=== PATIENT | male | born 1950 | race Caucasian/White ===

== ENCOUNTER → 2017-11-25 06:40 | Outpatient (CLI) | payer OTHER ==
[~2017-11-25 06:40] MED LIST: COZAAR100 MG PO; LIPITOR20 MG PO; NORVASC2.5 M1 PO; OMEPRAZOLE40 MG PO; TAMS0.4C PO
== END | disposition home or self-care (01) ==
LOC: RAD 06:40
DX: D68.8 Other specified coagulation defects (principal); N39.9 Disorder of urinary system, unspecified; I10 Essential (primary) hypertension

== ENCOUNTER 2017-11-27 13:51 | Outpatient (CLI) | payer OTHER | END 2017-11-27 13:55 | disposition home or self-care (01) | LOC: SONOGRAMA 13:51 | DX: C67.9 Malignant neoplasm of bladder, unspecified (principal) ==

== ENCOUNTER 2017-12-03 05:15 | Day surgery (SDC) | payer OTHER | END 2017-12-03 13:55 | disposition home or self-care (01) | LOC: CIR.AMB 05:15 | DX: C67.0 Malignant neoplasm of trigone of bladder (principal); C67.2 Malignant neoplasm of lateral wall of bladder ==

== ENCOUNTER 2018-01-06 12:31 | Outpatient (CLI) | payer OTHER | END 2018-01-06 12:41 | disposition home or self-care (01) | LOC: SONOGRAMA 12:31 | DX: C67.6 Malignant neoplasm of ureteric orifice (principal) ==

== ENCOUNTER 2018-03-31 09:34 | Outpatient (CLI) | payer OTHER | END 2018-03-31 15:00 | disposition home or self-care (01) | LOC: RX STUDY 09:34 | DX: Z48.816 Encounter for surgical aftercare following surgery on the genitourinary system (principal) | CPT/HCPCS: 51600; 74430; Q9958 ==

== ENCOUNTER 2018-03-31 11:48 | Outpatient (CLI) | payer OTHER | END 2018-03-31 17:18 | disposition home or self-care (01) | LOC: LAB 11:48 | DX: N30.00 Acute cystitis without hematuria (principal) ==

== ENCOUNTER 2018-11-11 10:13 | Outpatient (CLI) | payer OTHER | END 2018-11-11 10:17 | disposition home or self-care (01) | LOC: LAB 10:13 | DX: N30.00 Acute cystitis without hematuria (principal) ==

== ENCOUNTER 2018-11-17 10:23 | Day surgery (SDC) | payer OTHER | END 2018-11-17 16:15 | disposition home or self-care (01) | LOC: AMB-ENDOS 10:23 | DX: K63.5 Polyp of colon (principal) ==

== ENCOUNTER 2019-01-14 12:49 | Outpatient (CLI) | payer OTHER | END 2019-01-14 12:57 | disposition home or self-care (01) | LOC: LAB 12:49 | DX: N30.00 Acute cystitis without hematuria (principal) ==

== ENCOUNTER 2019-07-14 10:32 | Outpatient (CLI) | payer OTHER | END 2019-07-14 10:39 | disposition home or self-care (01) | LOC: LAB 10:32 | DX: N30.00 Acute cystitis without hematuria (principal) ==

== ENCOUNTER 2019-08-25 12:45 | Outpatient (CLI) | payer OTHER | END 2019-08-25 12:51 | disposition home or self-care (01) | LOC: LAB 12:45 | PROVIDERS: ATTEND Urology | DX: N30.00 Acute cystitis without hematuria (principal) ==

== ENCOUNTER 2020-05-09 09:50 | Outpatient (CLI) | payer OTHER | END 2020-05-09 09:52 | disposition home or self-care (01) | LOC: LAB 09:50 | PROVIDERS: ATTEND Radiology Diagnostic Radiology | DX: N20.0 Calculus of kidney (principal) ==

== ENCOUNTER 2020-08-14 09:44 | Outpatient (CLI) | payer OTHER | END 2020-08-14 09:46 | disposition home or self-care (01) | LOC: LAB 09:44 | PROVIDERS: ATTEND Urology | DX: N30.00 Acute cystitis without hematuria (principal) ==

== ENCOUNTER 2021-09-04 09:19 | Outpatient (CLI) | payer OTHER | END 2021-09-04 09:20 | disposition home or self-care (01) | LOC: LAB 09:19 | PROVIDERS: ATTEND Urology | DX: C67.9 Malignant neoplasm of bladder, unspecified (principal); R97.21 Rising PSA following treatment for malignant neoplasm of prostate ==

== ENCOUNTER 2021-10-30 14:03 | Outpatient (CLI) | payer OTHER | END 2021-10-30 14:04 | disposition home or self-care (01) | LOC: LAB 14:03 | PROVIDERS: ATTEND Urology | DX: R97.20 Elevated prostate specific antigen [PSA] (principal) ==

== ENCOUNTER 2021-12-07 07:20 | Outpatient (CLI) | payer OTHER | END 2021-12-07 07:35 | disposition home or self-care (01) | LOC: SONOGRAMA 07:20 | PROVIDERS: ATTEND Urology | DX: N40.0 Benign prostatic hyperplasia without lower urinary tract symptoms (principal) ==

== ENCOUNTER 2022-12-05 12:23 | Outpatient (CLI) | payer OTHER ==
[2022-12-05 13:12] LABS: PH,URINE 6.5 (5.0-8.0); URINE APPEARANCE Clear; URINE BILIRRUBIN Negative (NEGATIVE); URINE BLOOD Negative; URINE COLOR Yellow; URINE GLUCOSE Negative (NEGATIVE); URINE LEUKOCYTE Negative; URINE NITRATE Negative; URINE PROTEIN 30 (NEGATIVE)
[2022-12-05 13:16] LABS: URINE WBC 3.4 uL (0.0-23.2)
[2022-12-05 13:51] LABS: URINE BACTERIA 1.2 uL (0.0-1933); URINE EPITHELIAL CELLS 1.3 uL (0.0-38.8)
== END 2022-12-05 12:26 | disposition home or self-care (01) ==
LOC: LAB 12:23
PROVIDERS: ATTEND Urology
DX: R97.21 Rising PSA following treatment for malignant neoplasm of prostate (principal)

== ENCOUNTER 2023-04-03 11:32 | Outpatient (CLI) | payer OTHER | END 2023-04-03 11:34 | disposition home or self-care (01) | LOC: MRI 11:32 | PROVIDERS: ATTEND Internal Medicine Rheumatology | DX: M51.17 Intervertebral disc disorders with radiculopathy, lumbosacral region (principal) | CPT/HCPCS: 72148 ==

== ENCOUNTER 2023-10-23 07:45 | Inpatient (IN) | payer OTHER ==
[2023-10-23 08:33] LABS: HEMATOCRIT 42.5 % (39.0-48.0); HEMOGLOBIN 14.5 g/dL (13-16.00); MEAN CELL VOLUME 93.1 fL (80.0-100.00); MEAN CORPUSCULAR HEMOGLOBIN 31.9 pg (27.00-32.0); MEAN CORPUSCULAR HGB CONC 34.2 g/dl (32.0-36.0); PLATELET COUNT 297 K/uL (150-450); RED BLOOD COUNT 4.56 M/uL (4.00-6.00); RED CELL DISTRIBUTION WIDTH 13.8 % (11.5-14.5)
[2023-10-23] MEDS ORDERED: NEURONTIN (08:34)
[2023-10-23 08:48] LABS: URINE APPEARANCE Clear; URINE BILIRRUBIN Negative (NEGATIVE); URINE BLOOD Negative; URINE COLOR Yellow; URINE GLUCOSE Negative (NEGATIVE); URINE KETONE Negative (NEGATIVE); URINE LEUKOCYTE Negative; URINE NITRATE Negative; URINE PROTEIN Negative (NEGATIVE); URINE UROBILINOGEN 0.2 E.U./dl
[2023-10-23 08:52] LABS: URINE RBC 2.4 uL (0.0-20.8)
[2023-10-23 08:55] LABS: INR 0.97; PARTIAL THROMBOPLASTIN TIME 29.7 SECONDS (22.0-34.0); PROTHROMBIN TIME 10.6 SECONDS (9.0-11.5)
[2023-10-23 08:56] LABS: URINE BACTERIA 1.2 uL (0.0-1933); URINE CAST 0.15 uL (0.0-1.40); URINE EPITHELIAL CELLS 0.7 uL (0.0-38.8)
[2023-10-23 11:21] LABS: CALCIUM 9.3 mg/dL (8.5-10.1); CREATININE SERUM 1.36 mg/dL (0.70-1.30); GFR 51.51; POTASSIUM 4.65 mEq/L (3.5-5.1); T4 TOTAL 7.21 UG/DL (4.5-12.1)
[2023-10-23 11:22] LABS: TSH 6.01 uIU/mL (0.358-3.74)
[2023-10-27] MEDS ORDERED: ENALAPRILAT DIHYDRATE 1.25 MG/ML VIAL IV PRN (08:00)
[2023-10-27] MEDS ORDERED: PROMETHAZINE HCL 50 MG/ML AMPUL IM PRN (08:00)
[2023-10-27] MEDS ORDERED: 0.9 % SODIUM CHLORIDE 1,000 ML IV SCH (08:00)
[2023-10-27] MEDS ORDERED: MEDROLPACK PO (08:02)
[2023-10-27] MEDS ORDERED: BACTRIM DS TAB1 EACH PO (08:02)
[2023-10-27] MEDS ORDERED: PERCOCET 5-3251 EACH PO (08:02)
[2023-10-27] MEDS ORDERED: GABAPENTIN100 M2 PO (08:03)
[2023-10-27] MEDS ORDERED: COLACE100 MG PO (08:03)
[2023-10-27] MEDS ORDERED: NEURONTIN800 MG PO (08:04)
[2023-10-27] MEDS ORDERED: VANCOMYCIN HCL 1,000 MG VIAL IV SCH (09:00)
[2023-10-27] MEDS ORDERED: DOCUSATE SODIUM 100MG CAP PO SCH (09:00)
[2023-10-27] MEDS ORDERED: TAMSULOSIN HCL 0.4 MG CAP PO SCH (09:00)
[2023-10-27] MEDS ORDERED: FAMOtidine 20 MG TABLET PO SCH (09:00)
[2023-10-27] MEDS ORDERED: METHYLPREDNISOLONE SOD SUCC 125 MG VIAL IV SCH (09:00)
[2023-10-27] MEDS ORDERED: MORPHINE SULFATE 4 MG/ML CARTRIDGE IV SCH (09:00)
[2023-10-27] MEDS ORDERED: VANCOMYCIN HCL 1,000 MG VIAL ONE ×3 (10:31→21:09)
[2023-10-27] MEDS ORDERED: METHYLPREDNISOLONE ACETATE 80 MG/ML VIAL ONE (15:14)
[2023-10-27] MEDS ORDERED: METHYLPREDNISOLONE SOD SUCC 125 MG VIAL ONE ×3 (15:14→18:51)
[2023-10-27] MEDS ORDERED: HEMOSTATIC MATRIX WITH THROMBIN KIT TOP ONE (15:15)
[2023-10-27] MEDS ORDERED: IOVERSOL 320 MG/ML - 50 ML VIAL IV ONE (15:15)
[2023-10-27] MEDS ORDERED: METHYLPREDNISOLONE SOD SUCC 125 MG VIAL IV ONE (16:30)
[2023-10-27] MEDS ORDERED: VANCOMYCIN HCL 1,000 MG VIAL IR ONE ×2 (16:30→21:45)
[2023-10-27] MEDS ORDERED: VANCOMYCIN HCL 1,000 MG VIAL SPEPROC ONE (16:30)
[2023-10-27] MEDS ORDERED: ENALAPRILAT DIHYDRATE 1.25 MG/ML VIAL IV ONE (20:30)
[2023-10-27] MEDS ORDERED: GABAPENTIN 800 MG TABLET PO SCH (21:00)
[2023-10-28] MEDS ORDERED: SODIUM CHLORIDE 0.45 % 1,000 ML IV SCH
[2023-10-28] MEDS ORDERED: OxyCODONE HCL/APAP UD (PERCOCET) PO PRN (06:01)
[2023-10-28 06:41] LABS: HEMATOCRIT 42.4 % (39.0-48.0); HEMOGLOBIN 14.7 g/dL (13-16.00); MEAN CELL VOLUME 92.2 fL (80.0-100.00); MEAN CORPUSCULAR HEMOGLOBIN 31.9 pg (27.00-32.0); MEAN CORPUSCULAR HGB CONC 34.6 g/dl (32.0-36.0); PLATELET COUNT 307 K/uL (150-450); RED CELL DISTRIBUTION WIDTH 13.6 % (11.5-14.5)
[2023-10-28 07:32] LABS: CALCIUM 9.3 mg/dL (8.5-10.1); CREATININE SERUM 1.54 mg/dL (0.70-1.30); GFR 44.63; POTASSIUM 4.87 mEq/L (3.5-5.1)
[2023-10-28] MEDS ORDERED: AMLODIPINE BESYLATE 5 MG TABLET PO SCH (09:00)
[2023-10-28] MEDS ORDERED: LOSARTAN POTASSIUM 100 MG TABLET PO SCH (09:00)
== END 2023-10-29 19:32 | disposition home or self-care (01) | DRG 455 ==
LOC: O/R 10-27 06:00 → PED 10-27 06:00 → SURH 10-27 07:45 → PED 10-27 18:54
PROVIDERS: ADMIT Orthopaedic Surgery Orthopaedic Surgery of the Spine; ATTEND Orthopaedic Surgery Orthopaedic Surgery of the Spine
PROC: 0SG3071 Fusion of Lumbosacral Joint with Autologous Tissue Substitute, Posterior Approach, Posterior Column, Open Approach (ICD-10-PCS; 2023-10-27)
PROC: 0ST40ZZ Resection of Lumbosacral Disc, Open Approach (ICD-10-PCS; 2023-10-27)
PROC: 0QB30ZZ Excision of Left Pelvic Bone, Open Approach (ICD-10-PCS; 2023-10-27)
PROC: 07DR0ZZ Extraction of Iliac Bone Marrow, Open Approach (ICD-10-PCS; 2023-10-27)
PROC: 4A1104G Monitoring of Peripheral Nervous Electrical Activity, Intraoperative, Open Approach (ICD-10-PCS; 2023-10-27)
PROC: XRGD0R7 Fusion of Lumbosacral Joint using Custom-Made Anatomically Designed Interbody Fusion Device, Open Approach, New Technology Group 7 (ICD-10-PCS; principal; 2023-10-27 10:00)
DX: M48.07 Spinal stenosis, lumbosacral region (principal); M43.17 Spondylolisthesis, lumbosacral region; I10 Essential (primary) hypertension